=== PATIENT | female | born 1945 | race African-American/Black ===

== ENCOUNTER 2021-01-02 07:44 | Emergency (ER) | payer MEDICARE ==
--- NOTE | 2021-01-02 08:22 | CT ---
DATE OF SERVICE: 01/02/21 CLINICAL DATA: RIGHT SIDED WEAKNESS Unenhanced brain CT: Multi slice acquisition through the brain without IV contrast was performed. No priors. There is a large area of parenchymal hemorrhage within the basal ganglia and thalamus on the left. There is associated mass effect. This most likely represents a hypertensive bleed. There is also blood density material noted within the lateral ventricles and 3rd ventricle consistent with intraventricular hemorrhage. No other acute abnormalities. MTDD
[2021-01-02] MEDS ORDERED: niCARdipine HCl 25 MG in Sodium Chloride 0.9% 240 ML IV SCH (09:00)
[2021-01-02] MEDS: Ondansetron 4 MG/2 ML SDV IVPUSH ONE ×2 (09:36→09:37)
[2021-01-02] MEDS ORDERED: Ondansetron 4 MG/2 ML SDV ONE (09:45)
--- NOTE | 2021-01-02 09:47 | CR ---
DATE OF SERVICE: 01/02/21 CLINICAL DATA: chest congestion - Acute CVA. AP CHEST: No priors. The patient has taken a poor inspiration. The heart is enlarged. The aorta is calcified and ectatic. The pulmonary vasculature appears mildly prominent suggesting pulmonary venous congestion. The lungs are clear. No pneumothorax. No pleural effusions. There is degenerative disc disease throughout the thoracic spine. [id number] [facility]
--- NOTE | 2021-01-02 09:55 | EDM.PDOC ---
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 She cannot move her Rt side. She has obvious drooping of the mouth on the Rt side. Onset: Sudden - Related Data Allergies Allergy/AdvReac Type Severity Reaction Status Date / Time No Known Allergies Allergy Verified 01/02/21 08:00 Home Meds: Home Meds Brimonidine [Alphagan 0.2% Ophth Soln] 5 ml EYEBOTH DAILY 01/02/21 [History] Latanoprost/Pf [Latanoprost 0.005% Eye Drop] 7.5 ml OP BEDTIME 01/02/21 [History] Timolol Maleate/PF [Timolol Maleate 0.5% Eye Drop] 1 drop EYEBOTH DAILY 01/02/21 [History] Past Medical History HEENT History: Reports: Cataract Cardiovascular History: Reports: Hypertension Endocrine/Metabolic History: Reports: Diabetes, Type II Social & Family History - Family History Family Medical History: Unobtainable - Tobacco Use Tobacco Use Status *Q: Unknown Ever Used Tobacco - Recreational Drug Use Recreational Drug Use: No ED ROS GENERAL - Review of Systems Review Of Systems: Comprehensive ROS is negative, except as noted in HPI. Neurological: Reports: Other (She has a hard time talking. She cannot move her Rt arm or leg. ) ED EXAM, NEURO - Physical Exam Exam: See Below Text/Narrative:: NIH score of 7 initially. General Appearance: Anxious Neurological: Other (She cannot move her Rt arm or leg at all. She has facial drooping on the Rt side.) #1 Interpretation EKG Date: 01/02/21 Course - Vital Signs Last Recorded V/S: Last Vital Signs Temp 97.2 F 01/02/21 07:53 Pulse 80 01/02/21 09:20 Resp 26 H 01/02/21 09:20 BP 166/85 H 01/02/21 09:20 Pulse Ox 97 01/02/21 09:20 - Orders/Labs/Meds Orders: Active Orders 24 hr Category Date Time Status EKG Documentation Completion [RC] ASDIRECTED Care 01/02/21 08:31 Active Banuelos Catheter Insertion [Insert Urinary Catheter] [OM. Care 01/02/21 08:45 Ordered PC] Q24H Urinary Catheter Assessment [RC] ASDIRECTED Care 01/02/21 08:32 Active niCARdipine HCl [Nicardipine HCl] 25 mg Med 01/02/21 09:00 Active Sodium Chloride 0.9% [Normal Saline] 240 ml IV ASDIRECTED Medication Orders Nicardipine HCl 25 mg/ Sodium (Chloride) 250 mls @ 50 mls/hr IV ASDIRECTED BRIDGER Last Admin: 01/02/21 08:40 Dose: 50 mls/hr Documented by: BRANDY Labs: Laboratory Tests 01/02/21 01/02/21 01/02/21 Range/Units 07:54 08:15 08:15 WBC 5.1 (4.0-11.0) K/uL RBC 4.73 (3.80-5.80) M/uL Hgb 12.3 (11.5-16.5) g/dL Hct 38.3 (37.0-47.0) % MCV 81 (76-96) fL MCH 26.0 L (27.0-32.0) pg MCHC 32.1 (31.0-35.0) g/dL RDW 14.8 (11.0-16.0) % Plt Count 223 (150-500) K/uL MPV 9.7 (6.0-10.0) fL Neut % (Auto) 56.0 (45.0-70.0) % Lymph % (Auto) 32.7 (20.0-40.0) % [place] % (Auto) 8.6 (3.0-10.0) % Eos % (Auto) 2.5 (1.0-5.0) % Baso % (Auto) 0.2 (0.0-0.5) % Neut # (Auto) 2.85 (2.00-7.50) K/uL Lymph # (Auto) 1.67 (1.50-4.00) K/uL [place] # (Auto) 0.44 (0.20-0.80) K/uL Eos # (Auto) 0.13 (0.04-0.40) K/uL Baso # (Auto) 0.01 L (0.02-0.10) K/uL PT (9.0-11.5) sec INR (1.0-3.5) Sodium 141 (136-145) mmol/L Potassium 4.0 (3.5-5.1) mmol/L Chloride 103 (98-107) mmol/L Carbon Dioxide 28.9 (21.0-32.0) mmol/L Anion Gap 13.1 (5.0-15.0) mmol/L BUN 21 (8-26) mg/dL Creatinine 1.26 H (0.55-1.02) mg/dL Est Cr Clr Drug Dosing 40.11 mL/min Estimated GFR (MDRD) 50 L (>60) MLS/MIN BUN/Creatinine Ratio 16.7 (6-25) Glucose 198 H D (74-100) mg/dL POC Glucose 177 H (74-110) mg/dL Calcium 8.8 (8.5-10.1) mg/dL Total Bilirubin 0.4 (0.0-1.0) mg/dL AST 22 (15-37) U/L ALT 19 (12-78) U/L Alkaline Phosphatase 82 (46-116) U/L Total Protein 8.3 H (6.4-8.2) g/dL Albumin 3.1 L (3.4-5.0) g/dL Globulin 5.2 H (2.2-4.2) g/dL Albumin/Globulin Ratio 0.6 L (0.8-2.0) 01/02/21 Range/Units 08:15 WBC (4.0-11.0) K/uL RBC (3.80-5.80) M/uL Hgb (11.5-16.5) g/dL Hct (37.0-47.0) % MCV (76-96) fL MCH (27.0-32.0) pg MCHC (31.0-35.0) g/dL RDW (11.0-16.0) % Plt Count (150-500) K/uL MPV (6.0-10.0) fL Neut % (Auto) (45.0-70.0) % Lymph % (Auto) (20.0-40.0) % [place] % (Auto) (3.0-10.0) % Eos % (Auto) (1.0-5.0) % Baso % (Auto) (0.0-0.5) % Neut # (Auto) (2.00-7.50) K/uL Lymph # (Auto) (1.50-4.00) K/uL [place] # (Auto) (0.20-0.80) K/uL Eos # (Auto) (0.04-0.40) K/uL Baso # (Auto) (0.02-0.10) K/uL PT 10.3 (9.0-11.5) sec INR 1.0 (1.0-3.5) Sodium (136-145) mmol/L Potassium (3.5-5.1) mmol/L Chloride (98-107) mmol/L Carbon Dioxide (21.0-32.0) mmol/L Anion Gap (5.0-15.0) mmol/L BUN (8-26) mg/dL Creatinine (0.55-1.02) mg/dL Est Cr Clr Drug Dosing mL/min Estimated GFR (MDRD) (>60) MLS/MIN BUN/Creatinine Ratio (6-25) Glucose (74-100) mg/dL POC Glucose (74-110) mg/dL Calcium (8.5-10.1) mg/dL Total Bilirubin (0.0-1.0) mg/dL AST (15-37) U/L ALT (12-78) U/L Alkaline Phosphatase (46-116) U/L Total Protein (6.4-8.2) g/dL Albumin (3.4-5.0) g/dL Globulin (2.2-4.2) g/dL Albumin/Globulin Ratio (0.8-2.0) Meds: Medications Generic Name Dose Route Start Last Admin Trade Name Freq PRN Reason Stop Dose Admin Nicardipine HCl 25 mg/ Sodium 250 mls @ 50 mls/hr 01/02/21 09:00 01/02/21 08:40 Chloride IV 50 mls/hr ASDIRECTED BRIDGER Administration Discontinued Medications Generic Name Dose Route Start Last Admin Trade Name Freq PRN Reason Stop Dose Admin Ondansetron HCl 4 mg 01/02/21 09:35 01/02/21 09:37 Ondansetron 4 Mg/2 Ml Sdv IVPUSH 01/02/21 09:36 4 mg ONETIME ONE Administration Ondansetron HCl Confirm 01/02/21 09:45 01/02/21 09:37 Ondansetron 4 Mg/2 Ml Sdv Administered 01/02/21 09:46 Not Given Dose 4 mg .ROUTE .K-MED ONE - Radiology Interpretation Free Text/Narrative:: Head CT shows a large bleed on the left side. - Re-Assessments/Exams Free Text/Narrative Re-Assessment/Exam: 01/02/21 09:57 Pt did vomit once some white sputum. She seems more relaxed after vomiting. Free Text/Narrative Re-Assessment/Exam: 01/02/21 09:[address] Kwok, Neurologist at [facility]. He accepted the pt, and suggested Nicardipine be used to bring down her BP. WE STARTED IT AT 5 MG/HOUR. NIH score remains at 7. 01/02/21 10:00 Departure - Departure Time of Disposition: 09:50 Disposition: DC/Tfer to Acute Hospital 02 Condition: Fair Clinical Impression: Stroke, hemorrhagic - Discharge Information *PRESCRIPTION DRUG MONITORING PROGRAM REVIEWED*: Not Applicable *COPY OF PRESCRIPTION DRUG MONITORING REPORT IN PATIENT RONALD: Not Applicable Referrals: PCP,None [Primary Care Provider] - Additional Instructions: Pt transferred to [facility] ER by life flight. Most recent BP 166/85. Sepsis Event Note (ED) - Evaluation Sepsis Screening Result: No Definite Risk - Focused Exam Vital Signs: Vital Signs Temp Pulse Resp BP Pulse Ox 01/02/21 09:20 80 26 H 166/85 H 97 01/02/21 09:00 79 16 182/92 H 100 01/02/21 08:21 75 18 196/106 H 93 L 01/02/21 07:53 97.2 F 85 18 205/112 H 90 L - My Orders Last 24 Hours: My Active Orders 01/02/21 08:31 EKG Documentation Completion [RC] ASDIRECTED 01/02/21 08:32 Urinary Catheter Assessment [RC] ASDIRECTED 01/02/21 08:45 Banuelos Catheter Insertion [Insert Urinary Catheter] [OM.PC] Q24H 01/02/21 09:00 niCARdipine HCl [Nicardipine HCl] 25 mg Sodium Chloride 0.9% [Normal Saline] 240 ml IV ASDIRECTED - Assessment/Plan Last 24 Hours: My Active Orders 01/02/21 08:31 EKG Documentation Completion [RC] ASDIRECTED 01/02/21 08:32 Urinary Catheter Assessment [RC] ASDIRECTED 01/02/21 08:45 Banuelos Catheter Insertion [Insert Urinary Catheter] [OM.PC] Q24H 01/02/21 09:00 niCARdipine HCl [Nicardipine HCl] 25 mg Sodium Chloride 0.9% [Normal Saline] 240 ml IV ASDIRECTED
== END 2021-01-02 09:45 ==
LOC: LB.ED 07:44
DX: S06.309A Unspecified focal traumatic brain injury with loss of consciousness of unspecified duration, initial encounter (principal); E11.9 Type 2 diabetes mellitus without complications; I10 Essential (primary) hypertension; W18.39XA Other fall on same level, initial encounter; Y92.000 Kitchen of unspecified non-institutional (private) residence as the place of occurrence of the external cause
CPT/HCPCS: 36415; 51702; 70450; 71045; 80053; 82947; 85025; 85610; 93005; 96365; 96375; 99285-25; A0425; A0429; J2405; J7050

== ENCOUNTER 2021-01-21 10:13 | Inpatient (IN) | payer MEDICARE ==
--- NOTE | 2021-01-21 12:10 | PCM.HP.2 ---
H&P History of Present Illness - General Date of Service: 01/21/21 Admit Problem/Dx: Admission Diagnosis/Problem Admission Diagnosis/Problem Hemiplegia Source of Information: Patient History Limitations: Reports: No Limitations - History of Present Illness Initial Comments - Free Text/Narative: patient was transferred to swing bed from [facility] for continuation of her rehab. 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 CT head showed left intraparenchymal hmrg involving the thalamus and BG resulting in flaccid paralysis on the right side ( upper and lower extremities ), as well as, right visual field cristine- neglect. Patient also known obesity, DM and HTN. On multiple meds to control her BP and insulin as well. Also required bed lift and total assistance for bathing, eating and dressing. She has a Ny catheter and was recently started on Cipro for a UTI ( course ends on 01/24). - Related Data Allergies/Adverse Reactions: Allergies Allergy/AdvReac Type Severity Reaction Status Date / Time penicillin G Allergy Rash Verified 01/21/21 14:01 Home Medications: Home Meds Brimonidine [Alphagan 0.2% Ophth Soln] 1 drop EYEBOTH BID 01/02/21 [History] Latanoprost/Pf [Latanoprost 0.005% Eye Drop] 1 drop EYEBOTH BEDTIME 01/02/21 [History] Timolol Maleate/PF [Timolol Maleate 0.5% Eye Drop] 1 drop EYEBOTH BID 01/02/21 [History] Past Medical History HEENT History: Reports: Cataract Cardiovascular History: Reports: Hypertension Endocrine/Metabolic History: Reports: Diabetes, Type II Social & Family History - Family History Family Medical History: Unobtainable H&P Review of Systems - Review of Systems: Review Of Systems: See Below General: Reports: No Symptoms HEENT: Reports: No Symptoms Pulmonary: Reports: No Symptoms Cardiovascular: Reports: No Symptoms Gastrointestinal: Reports: No Symptoms Skin: Reports: No Symptoms Exam - Exam Exam: See Below - Exam Quality Assessment: No: Supplemental Oxygen General: Alert, Oriented, Cooperative HEENT: PERRLA, Mucosa Moist & [place] Lungs: Clear to Auscultation, Normal Respiratory Effort Cardiovascular: Regular Rate, Regular Rhythm GI/Abdominal Exam: Normal Bowel Sounds, Soft, Non-Tender Extremities: Normal Inspection Neuro Extensive - Mental Status: Alert, Oriented x3, Normal Mood/Affect Neuro Extensive - Motor, Sensory, Reflexes: Other (right sided weakness involving RUE and RLE. Also right side facial palsy - with right sided hemineglect. left side motor 5/5 with intact sensation ) Psychiatric: Alert, Normal Affect, Normal Mood - Problem List (1) UTI (urinary tract infection) SNOMED Code(s): 16644191 ICD Code: N39.0 - URINARY TRACT INFECTION, SITE NOT SPECIFIED Status: Acute Priority: Low Current Visit: Yes Qualifiers: Urinary tract infection type: acute cystitis Hematuria presence: without hematuria Qualified Code(s): N30.00 - Acute cystitis without hematuria (2) Hypertension SNOMED Code(s): 94851398 ICD Code: I10 - ESSENTIAL (PRIMARY) HYPERTENSION Status: Acute Priority: Low Current Visit: Yes Qualifiers: Hypertension type: unspecified Qualified Code(s): I10 - Essential (primary) hypertension (3) Diabetes SNOMED Code(s): 52138700 ICD Code: E11.9 - TYPE 2 DIABETES MELLITUS WITHOUT COMPLICATIONS Status: Acute Priority: Low Current Visit: Yes Qualifiers: Diabetes mellitus type: type 2 Diabetes mellitus fci insulin use: with keno terminal operator use Diabetes mellitus complication status: without complication Qualified Code(s): E11.9 - Type 2 diabetes mellitus without complications; Z79.4 - alf (current) use of insulin (4) Stroke, hemorrhagic SNOMED Code(s): 175963735 ICD Code: I61.9 - NONTRAUMATIC INTRACEREBRAL HEMORRHAGE, UNSPECIFIED Status: Acute Priority: Medium Current Visit: No Problem List Initiated/Reviewed/Updated: Yes Orders Last 24hrs: Active Orders 24 hr Category Date Time Status Admission Status [Patient Status] [ADT] Routine ADT 01/21/21 11:20 Active Bedrest Bedside Commode [RC] ASDIRECTED Care 01/21/21 12:03 Ordered Oxygen Therapy [RC] PRN Care 01/21/21 12:03 Ordered Vital Signs [RC] Q4H Care 01/21/21 12:03 Ordered OT Evaluation and Treatment [CONS] Routine Cons 01/21/21 12:05 Ordered PT Evaluation and Treatment [CONS] Routine Cons 01/21/21 12:05 Ordered Clear Liquid Diet [DIET] Diet 01/21/21 Lunch Ordered Assessment/Plan Comment:: 1- 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 -avoid anticoagulation. daily monitoring of symptoms. PT/OT consultation. 2- Oropharyngeal dysphagia: -speech language consultation. meanwhile, resume thick liquid minced diet. 3- Essential HTN: - Suboptimal controlled. On multiple meds will adjust accordingly. Carvedilol, Nifedipine, HCLZ, and lisinopril. 4- DMT2: - blood sugar monitoring with meals x4. Sliding scale. Levemir 15 units q AM, and Humalog with meals as needed. 5- h/o Glaucoma: - resume eye drops - Alphagan, Xalatan, Timoptic. 6- h/o UTI/ On ny: - was started on Cipro 500mg PO on 01/19 - resume till 01/24. 7- Obesity/weakness: - required bed lift and multiple banking assistant to bathing, feeding and cleaning. - Mortality Measure Prognosis:: Good
[2021-01-21] MEDS ORDERED: Glucagon,Human Recombinant 1 MG Vial IM PRN ×2 (13:50→22:05)
[2021-01-21] MEDS ORDERED: 50% Dextrose in Water 50 ML Syringe IVPUSH PRN ×2 (13:50→22:05)
[2021-01-21] MEDS: Ascorbic Acid 500 MG Tab PO SCH ×2 (15:19→20:47)
[2021-01-21] MEDS: Brimonidine 0.2% Ophth Soln 5 ML Bottle EYEBOTH SCH (20:43)
[2021-01-21] MEDS: Ciprofloxacin 500 MG Tab PO SCH (20:44)
[2021-01-21] MEDS: Carvedilol 6.25 MG Tab PO SCH (20:44)
[2021-01-21] MEDS: NIFEdipine 30 MG Tab.ER PO SCH (20:45)
[2021-01-21] MEDS: Timolol Maleate 0.5% Ophth Soln 5 ML Bottle EYEBOTH SCH (20:46)
[2021-01-21] MEDS: Latanoprost 0.005% Ophth Soln 2.5 ML Bottle EYEBOTH SCH (20:47)
[2021-01-21] MEDS: Insulin Regular, Human 100 Units/ML 3 ML Vial SUBCUT SCH (22:25)
[2021-01-22] MEDS: Insulin Regular, Human 100 Units/ML 3 ML Vial SUBCUT SCH ×3 (08:20→17:45)
[2021-01-22] MEDS: Timolol Maleate 0.5% Ophth Soln 5 ML Bottle EYEBOTH SCH ×2 (08:20→20:28)
[2021-01-22] MEDS: Carvedilol 6.25 MG Tab PO SCH ×2 (08:21→20:27)
[2021-01-22] MEDS: NIFEdipine 30 MG Tab.ER PO SCH ×2 (08:21→20:28)
[2021-01-22] MEDS: Lisinopril 20 MG Tab PO SCH (08:22)
[2021-01-22] MEDS: Ascorbic Acid 500 MG Tab PO SCH ×3 (08:22→20:28)
[2021-01-22] MEDS: Hydrochlorothiazide 12.5 MG Cap PO SCH (08:22)
[2021-01-22] MEDS: Ciprofloxacin 500 MG Tab PO SCH ×2 (08:22→20:27)
[2021-01-22] MEDS: Isosorbide Mononitrate 60 MG Tab.ER PO SCH (08:22)
[2021-01-22] MEDS: Insulin Glargine,Human Rec. Analog 100 Units/ML 3 ML Pen SUBCUT SCH (08:46)
[2021-01-22] MEDS: Brimonidine 0.2% Ophth Soln 5 ML Bottle EYEBOTH SCH (10:09)
[2021-01-22] MEDS: BRIMONIDINE EYEBOTH SCH ×2 (10:10→20:28)
[2021-01-22] MEDS: Latanoprost 0.005% Ophth Soln 2.5 ML Bottle EYEBOTH SCH (20:28)
[2021-01-23] MEDS: Insulin Regular, Human 100 Units/ML 3 ML Vial SUBCUT SCH ×3 (08:11→17:40)
[2021-01-23] MEDS: Ciprofloxacin 500 MG Tab PO SCH ×2 (08:33→20:59)
[2021-01-23] MEDS: Ascorbic Acid 500 MG Tab PO SCH ×3 (08:33→20:59)
[2021-01-23] MEDS: NIFEdipine 30 MG Tab.ER PO SCH ×2 (08:34→20:58)
[2021-01-23] MEDS: BRIMONIDINE EYEBOTH SCH ×2 (08:35→21:00)
[2021-01-23] MEDS: Insulin Glargine,Human Rec. Analog 100 Units/ML 3 ML Pen SUBCUT SCH (08:35)
[2021-01-23] MEDS: Isosorbide Mononitrate 60 MG Tab.ER PO SCH (08:36)
[2021-01-23] MEDS: Hydrochlorothiazide 12.5 MG Cap PO SCH (08:36)
[2021-01-23] MEDS: Lisinopril 20 MG Tab PO SCH (08:37)
[2021-01-23] MEDS: Carvedilol 6.25 MG Tab PO SCH ×2 (08:37→20:59)
[2021-01-23] MEDS: Timolol Maleate 0.5% Ophth Soln 5 ML Bottle EYEBOTH SCH ×2 (08:38→20:59)
[2021-01-23] MEDS: Polyethylene Glycol 3350 Powder 17 GM Packet PO SCH (11:27)
[2021-01-23] MEDS: Latanoprost 0.005% Ophth Soln 2.5 ML Bottle EYEBOTH SCH (21:00)
[2021-01-24] MEDS: Timolol Maleate 0.5% Ophth Soln 5 ML Bottle EYEBOTH SCH ×2 (08:00→20:36)
[2021-01-24] MEDS: BRIMONIDINE EYEBOTH SCH ×2 (10:00→20:35)
[2021-01-24] MEDS: NIFEdipine 30 MG Tab.ER PO SCH ×2 (10:01→20:32)
[2021-01-24] MEDS ORDERED: NIFEdipine 30 MG Tab.ER ONE (10:04)
[2021-01-24] MEDS: FLUoxetine 10 MG Cap PO SCH (10:04)
[2021-01-24] MEDS: Ascorbic Acid 500 MG Tab PO SCH ×3 (10:05→20:31)
[2021-01-24] MEDS: Ciprofloxacin 500 MG Tab PO SCH ×2 (10:06→20:31)
[2021-01-24] MEDS: Hydrochlorothiazide 12.5 MG Cap PO SCH (10:06)
[2021-01-24] MEDS: Carvedilol 6.25 MG Tab PO SCH ×2 (10:07→20:31)
[2021-01-24] MEDS: Isosorbide Mononitrate 60 MG Tab.ER PO SCH (10:07)
[2021-01-24] MEDS: Polyethylene Glycol 3350 Powder 17 GM Packet PO SCH (10:09)
[2021-01-24] MEDS: Lisinopril 20 MG Tab PO SCH (10:09)
[2021-01-24] MEDS: Insulin Regular, Human 100 Units/ML 3 ML Vial SUBCUT SCH ×4 (10:10→20:42)
[2021-01-24] MEDS: Insulin Glargine,Human Rec. Analog 100 Units/ML 3 ML Pen SUBCUT SCH (10:16)
[2021-01-24] MEDS: Latanoprost 0.005% Ophth Soln 2.5 ML Bottle EYEBOTH SCH (20:41)
[2021-01-25] MEDS: FLUoxetine 10 MG Cap PO SCH (08:11)
[2021-01-25] MEDS: Lisinopril 20 MG Tab PO SCH (08:11)
[2021-01-25] MEDS: Isosorbide Mononitrate 60 MG Tab.ER PO SCH (08:12)
[2021-01-25] MEDS: Ciprofloxacin 500 MG Tab PO SCH (08:12)
[2021-01-25] MEDS: Hydrochlorothiazide 12.5 MG Cap PO SCH (08:12)
[2021-01-25] MEDS: NIFEdipine 30 MG Tab.ER PO SCH ×2 (08:12→20:26)
[2021-01-25] MEDS: Ascorbic Acid 500 MG Tab PO SCH ×3 (08:12→20:27)
[2021-01-25] MEDS: Carvedilol 6.25 MG Tab PO SCH ×2 (08:12→20:23)
[2021-01-25] MEDS: Polyethylene Glycol 3350 Powder 17 GM Packet PO SCH (08:13)
[2021-01-25] MEDS: BRIMONIDINE EYEBOTH SCH ×2 (08:13→20:25)
[2021-01-25] MEDS: Timolol Maleate 0.5% Ophth Soln 5 ML Bottle EYEBOTH SCH ×2 (08:14→20:27)
[2021-01-25] MEDS: Insulin Glargine,Human Rec. Analog 100 Units/ML 3 ML Pen SUBCUT SCH (08:15)
[2021-01-25] MEDS: Insulin Regular, Human 100 Units/ML 3 ML Vial SUBCUT SCH ×4 (08:15→20:23)
[2021-01-25] MEDS: Latanoprost 0.005% Ophth Soln 2.5 ML Bottle EYEBOTH SCH (20:28)
[2021-01-26] MEDS: Polyethylene Glycol 3350 Powder 17 GM Packet PO SCH (07:13)
[2021-01-26] MEDS: FLUoxetine 10 MG Cap PO SCH (07:13)
[2021-01-26] MEDS: Ascorbic Acid 500 MG Tab PO SCH ×3 (07:14→23:22)
[2021-01-26] MEDS: Hydrochlorothiazide 12.5 MG Cap PO SCH (07:14)
[2021-01-26] MEDS: Isosorbide Mononitrate 60 MG Tab.ER PO SCH (07:14)
[2021-01-26] MEDS: Timolol Maleate 0.5% Ophth Soln 5 ML Bottle EYEBOTH SCH ×2 (07:16→23:04)
[2021-01-26] MEDS: Lisinopril 20 MG Tab PO SCH (07:36)
[2021-01-26] MEDS: NIFEdipine 30 MG Tab.ER PO SCH ×2 (07:37→21:00)
[2021-01-26] MEDS: Carvedilol 6.25 MG Tab PO SCH ×2 (07:37→21:00)
[2021-01-26] MEDS: BRIMONIDINE EYEBOTH SCH ×2 (07:40→23:05)
[2021-01-26] MEDS: Insulin Glargine,Human Rec. Analog 100 Units/ML 3 ML Pen SUBCUT SCH (07:47)
[2021-01-26] MEDS: Insulin Regular, Human 100 Units/ML 3 ML Vial SUBCUT SCH ×4 (08:16→22:58)
[2021-01-26] MEDS: Latanoprost 0.005% Ophth Soln 2.5 ML Bottle EYEBOTH SCH (23:05)
[2021-01-27] MEDS: Hydrochlorothiazide 12.5 MG Cap PO SCH (07:23)
[2021-01-27] MEDS: Isosorbide Mononitrate 60 MG Tab.ER PO SCH (07:23)
[2021-01-27] MEDS: Polyethylene Glycol 3350 Powder 17 GM Packet PO SCH (07:23)
[2021-01-27] MEDS: Ascorbic Acid 500 MG Tab PO SCH ×3 (07:24→20:53)
[2021-01-27] MEDS: BRIMONIDINE EYEBOTH SCH ×2 (07:24→20:55)
[2021-01-27] MEDS: Timolol Maleate 0.5% Ophth Soln 5 ML Bottle EYEBOTH SCH ×2 (07:26→20:54)
[2021-01-27] MEDS: FLUoxetine 10 MG Cap PO SCH (07:26)
[2021-01-27] MEDS: Lisinopril 20 MG Tab PO SCH (07:29)
[2021-01-27] MEDS: Carvedilol 6.25 MG Tab PO SCH ×2 (07:29→20:52)
[2021-01-27] MEDS: NIFEdipine 30 MG Tab.ER PO SCH ×2 (07:30→20:53)
[2021-01-27] MEDS: Insulin Regular, Human 100 Units/ML 3 ML Vial SUBCUT SCH ×4 (07:45→20:49)
[2021-01-27] MEDS: Insulin Glargine,Human Rec. Analog 100 Units/ML 3 ML Pen SUBCUT SCH (17:49)
[2021-01-27] MEDS: Latanoprost 0.005% Ophth Soln 2.5 ML Bottle EYEBOTH SCH (20:54)
[2021-01-28] MEDS: Isosorbide Mononitrate 60 MG Tab.ER PO SCH (09:11)
[2021-01-28] MEDS: Carvedilol 6.25 MG Tab PO SCH ×2 (09:11→19:58)
[2021-01-28] MEDS: Ascorbic Acid 500 MG Tab PO SCH ×3 (09:12→19:58)
[2021-01-28] MEDS: Hydrochlorothiazide 12.5 MG Cap PO SCH (09:12)
[2021-01-28] MEDS: FLUoxetine 10 MG Cap PO SCH (09:12)
[2021-01-28] MEDS: Lisinopril 20 MG Tab PO SCH (09:12)
[2021-01-28] MEDS: Polyethylene Glycol 3350 Powder 17 GM Packet PO SCH (09:13)
[2021-01-28] MEDS: BRIMONIDINE EYEBOTH SCH ×2 (09:14→19:57)
[2021-01-28] MEDS: Insulin Regular, Human 100 Units/ML 3 ML Vial SUBCUT SCH ×4 (10:22→19:55)
[2021-01-28] MEDS: NIFEdipine 30 MG Tab.ER PO SCH ×2 (10:25→19:59)
[2021-01-28] MEDS: Insulin Glargine,Human Rec. Analog 100 Units/ML 3 ML Pen SUBCUT SCH (10:36)
[2021-01-28] MEDS: Timolol Maleate 0.5% Ophth Soln 5 ML Bottle EYEBOTH SCH ×2 (11:00→20:06)
--- NOTE | 2021-01-28 18:45 | PCM.PN ---
- General Info Date of Service: 01/28/21 Subjective Update: Patient able to acknowledge me present and also the presence of her grandson. She denies any pain or discomfort. She has limited speech but able to speak a one or two words at times. She continues to be unable to move the right side. Functional Status: Reports: Pain Controlled, Tolerating Diet (we will need to closely monitor and feed; f/u with speech therapy closely) - Review of Systems General: Reports: Weakness HEENT: Reports: No Symptoms Pulmonary: Reports: No Symptoms Cardiovascular: Reports: No Symptoms Gastrointestinal: Reports: No Symptoms Genitourinary: Reports: No Symptoms Musculoskeletal: Reports: No Symptoms Neurological: Reports: Pre-Existing Deficit - Patient Data Vitals - Most Recent: Last Vital Signs Temp 37.0 C 01/28/21 17:00 Pulse 79 01/28/21 17:00 Resp 18 01/28/21 17:00 BP 100/66 01/28/21 17:00 Pulse Ox 98 01/28/21 17:00 Weight - Most Recent: 91.58 kg I&O - Last 24 Hours: Intake & Output 01/28/21 01/28/21 01/28/21 06:59 14:59 22:59 Output Total 800 Balance -800 Lab Results Last 24 Hours: Laboratory Results - last 24 hr 01/27/21 01/28/21 01/28/21 Range/Units 20:18 07:55 11:30 POC Glucose 237 H 117 H 230 H (74-110) mg/dL 01/28/21 Range/Units 16:49 POC Glucose 260 H (74-110) mg/dL Med Orders - Current: Current Medications Ascorbic Acid (Ascorbic Acid 500 Mg Tab) 500 mg PO TID [facility] Last Admin: 01/28/21 15:06 Dose: 500 mg Documented by: Brimonidine Tartrate (Brimonidine 0.2% Ophth Soln 5 Ml Bottle) 1 ml EYEBOTH BID [facility] Last Admin: 01/22/21 10:09 Dose: Not Given Documented by: Carvedilol (Carvedilol 6.25 Mg Tab) 6.25 mg PO BID [facility] Last Admin: 01/28/21 09:11 Dose: 6.25 mg Documented by: Dextrose/Water (50% Dextrose In Water 50 Ml Syringe) 50 ml IVPUSH ASDIRECTED PRN PRN Reason: Hypoglycemia Dextrose/Water (50% Dextrose In Water 50 Ml Syringe) 50 ml IVPUSH ASDIRECTED PRN PRN Reason: Hypoglycemia Fluoxetine HCl (Fluoxetine 10 Mg Cap) 10 mg PO DAILY [facility] Last Admin: 01/28/21 09:12 Dose: 10 mg Documented by: Glucagon (Glucagon,Human Recombinant 1 Mg Vial) 1 mg IM ASDIRECTED PRN PRN Reason: Hypoglycemia Glucagon (Glucagon,Human Recombinant 1 Mg Vial) 1 mg IM ASDIRECTED PRN PRN Reason: Hypoglycemia Hydrochlorothiazide (Hydrochlorothiazide 12.5 Mg Cap) 12.5 mg PO DAILY [facility] Last Admin: 01/28/21 09:12 Dose: 12.5 mg Documented by: Insulin Glargine (Insulin Glargine,Human Rec. Analog 100 Units/Ml 3 Ml Pen) 15 units SUBCUT QAM [facility] Last Admin: 01/28/21 10:36 Dose: 15 units Documented by: Insulin Human Regular (Insulin Regular, Human 100 Units/Ml 3 Ml Vial) 0 unit SUBCUT QID [facility]; Protocol Last Admin: 01/28/21 17:38 Dose: 6 unit Documented by: Isosorbide Mononitrate (Isosorbide Mononitrate 60 Mg Tab.Er) 60 mg PO DAILY [facility] Last Admin: 01/28/21 09:11 Dose: 60 mg Documented by: Latanoprost (Latanoprost 0.005% Ophth Soln 2.5 Ml Bottle) 1 ml EYEBOTH BEDTIME [facility] Last Admin: 01/27/21 20:54 Dose: 1 drop Documented by: Lisinopril (Lisinopril 20 Mg Tab) 20 mg PO DAILY [facility] Last Admin: 01/28/21 09:12 Dose: 20 mg Documented by: Nifedipine (Nifedipine 30 Mg Tab.Er) 60 mg PO BID [facility] Last Admin: 01/28/21 10:25 Dose: 60 mg Documented by: Brimonidine (Ophthalmic Drops) 1 each EYEBOTH BID [facility] Last Admin: 01/28/21 09:14 Dose: 1 each Documented by: Polyethylene Glycol (Polyethylene Glycol 3350 Powder 17 Gm Packet) 17 gm PO DAILY [facility] Last Admin: 01/28/21 09:13 Dose: Not Given Documented by: Timolol Maleate (Timolol Maleate 0.5% Ophth Soln 5 Ml Bottle) 1 ml EYEBOTH BID [facility] Last Admin: 01/28/21 11:00 Dose: 1 drop Documented by: Discontinued Medications Ciprofloxacin (Ciprofloxacin 500 Mg Tab) 500 mg PO BID [facility] Stop: 01/25/21 08:01 Last Admin: 01/25/21 08:12 Dose: 500 mg Documented by: Insulin Human Regular (Insulin Regular, Human 100 Units/Ml 3 Ml Vial) 0 unit SUBCUT TIDAC [facility]; Protocol Last Admin: 01/24/21 17:25 Dose: 4 units Documented by: Nifedipine (Nifedipine 30 Mg Tab.Er) Confirm Administered Dose 30 mg .ROUTE .STK-MED ONE Stop: 01/24/21 10:05 Last Admin: 01/24/21 13:59 Dose: Not Given Documented by: - Exam Urinary Catheter Total Time: 10 General: Alert, Cooperative HEENT: Pupils Equal Neck: Supple Lungs: Clear to Auscultation, Normal Respiratory Effort Cardiovascular: Regular Rate, Regular Rhythm GI/Abdominal Exam: Normal Bowel Sounds Back Exam: Normal Inspection Extremities: Normal Inspection Neurological: No New Focal Deficit Psy/Mental Status: Alert, Normal Affect, Normal Mood - Patient Data Lab Results Last 24 hrs: Laboratory Results - last 24 hr 01/27/21 01/28/21 01/28/21 Range/Units 20:18 07:55 11:30 POC Glucose 237 H 117 H 230 H (74-110) mg/dL 01/28/21 Range/Units 16:49 POC Glucose 260 H (74-110) mg/dL Result Diagrams: 01/26/21 13:23 01/26/21 13:23 Sepsis Event Note - Evaluation Sepsis Screening Result: No Definite Risk - Focused Exam Vital Signs: Vital Signs Temp Temp Pulse Pulse Resp BP BP 01/28/21 17:00 37.0 C 79 18 100/66 01/28/21 10:25 132/72 01/28/21 09:12 132/72 01/28/21 09:11 79 132/72 01/28/21 09:00 36.6 C 79 18 132/72 Pulse Ox 01/28/21 17:00 98 01/28/21 10:25 01/28/21 09:12 01/28/21 09:11 01/28/21 09:00 98 - Problem List & Annotations (1) Stroke, hemorrhagic SNOMED Code(s): 712163552 Code(s): I61.9 - NONTRAUMATIC INTRACEREBRAL HEMORRHAGE, UNSPECIFIED Status: Acute Priority: High Current Visit: Yes - Problem List Review Problem List Initiated/Reviewed/Updated: Yes - Plan Plan:: 1- 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 -avoid anticoagulation. daily monitoring of symptoms. PT/OT consultation. 2- Oropharyngeal dysphagia: -speech language consultation. meanwhile, resume thick liquid minced diet. 3- Essential HTN: - Suboptimal controlled. On multiple meds will adjust accordingly. Carvedilol, Nifedipine, HCLZ, and lisinopril. 4- DMT2: - blood sugar monitoring with meals x4. Sliding scale. Levemir 15 units q AM, and Humalog with meals as needed. 5- h/o Glaucoma: - resume eye drops - Alphagan, Xalatan, Timoptic. 6- h/o UTI/ On ny: - was started on Cipro 500mg PO on 01/19 - resume till 01/24. 7- Obesity/weakness: - required bed lift and multiple assistant credit manager to bathing, feeding and cleaning. 01/28/21 Acute CVA - requires PT/OT and Speech Therapy management. Oral dysphagia and speech deficit - Requires Speech therapy HTN - continue control on current BP meds and continue to adjust accordingly DM - Continue glucose monitoring and management Glaucoma - continue current drops and management UTI - Resolved Obesity/Weakness - Lift required, assist for feeding, bathing and hygiene.
[2021-01-28] MEDS: Latanoprost 0.005% Ophth Soln 2.5 ML Bottle EYEBOTH SCH (20:02)
[2021-01-29] MEDS: Hydrochlorothiazide 12.5 MG Cap PO SCH (08:03)
[2021-01-29] MEDS: NIFEdipine 30 MG Tab.ER PO SCH ×2 (08:04→19:43)
[2021-01-29] MEDS: Carvedilol 6.25 MG Tab PO SCH ×2 (08:07→19:43)
[2021-01-29] MEDS: FLUoxetine 10 MG Cap PO SCH (08:08)
[2021-01-29] MEDS: Ascorbic Acid 500 MG Tab PO SCH ×3 (08:08→19:44)
[2021-01-29] MEDS: Lisinopril 20 MG Tab PO SCH (08:08)
[2021-01-29] MEDS: Isosorbide Mononitrate 60 MG Tab.ER PO SCH (08:09)
[2021-01-29] MEDS: Insulin Glargine,Human Rec. Analog 100 Units/ML 3 ML Pen SUBCUT SCH (08:09)
[2021-01-29] MEDS: Insulin Regular, Human 100 Units/ML 3 ML Vial SUBCUT SCH ×4 (08:09→19:48)
[2021-01-29] MEDS: Timolol Maleate 0.5% Ophth Soln 5 ML Bottle EYEBOTH SCH ×2 (08:10→19:42)
[2021-01-29] MEDS: BRIMONIDINE EYEBOTH SCH ×2 (08:10→19:40)
[2021-01-29] MEDS: Polyethylene Glycol 3350 Powder 17 GM Packet PO SCH (08:10)
[2021-01-29] MEDS: Latanoprost 0.005% Ophth Soln 2.5 ML Bottle EYEBOTH SCH (19:44)
[2021-01-30] MEDS: Polyethylene Glycol 3350 Powder 17 GM Packet PO SCH (07:33)
[2021-01-30] MEDS: NIFEdipine 30 MG Tab.ER PO SCH ×2 (07:33→19:58)
[2021-01-30] MEDS: Carvedilol 6.25 MG Tab PO SCH ×2 (07:33→19:58)
[2021-01-30] MEDS: Isosorbide Mononitrate 60 MG Tab.ER PO SCH (07:33)
[2021-01-30] MEDS: Lisinopril 20 MG Tab PO SCH (07:34)
[2021-01-30] MEDS: FLUoxetine 10 MG Cap PO SCH (07:34)
[2021-01-30] MEDS: Insulin Regular, Human 100 Units/ML 3 ML Vial SUBCUT SCH ×4 (07:34→19:59)
[2021-01-30] MEDS: Ascorbic Acid 500 MG Tab PO SCH ×3 (07:34→19:59)
[2021-01-30] MEDS: Hydrochlorothiazide 12.5 MG Cap PO SCH (07:34)
[2021-01-30] MEDS: Timolol Maleate 0.5% Ophth Soln 5 ML Bottle EYEBOTH SCH ×2 (07:35→20:04)
[2021-01-30] MEDS: Insulin Glargine,Human Rec. Analog 100 Units/ML 3 ML Pen SUBCUT SCH (07:36)
[2021-01-30] MEDS: BRIMONIDINE EYEBOTH SCH ×2 (07:37→21:07)
[2021-01-30] MEDS: Latanoprost 0.005% Ophth Soln 2.5 ML Bottle EYEBOTH SCH (21:07)
[2021-01-31] MEDS: Polyethylene Glycol 3350 Powder 17 GM Packet PO SCH (09:58)
[2021-01-31] MEDS: Ascorbic Acid 500 MG Tab PO SCH ×4 (09:59→20:36)
[2021-01-31] MEDS: Lisinopril 20 MG Tab PO SCH (09:59)
[2021-01-31] MEDS: BRIMONIDINE EYEBOTH SCH ×2 (09:59→20:25)
[2021-01-31] MEDS: Carvedilol 6.25 MG Tab PO SCH ×2 (10:02→20:39)
[2021-01-31] MEDS: Isosorbide Mononitrate 60 MG Tab.ER PO SCH (10:02)
[2021-01-31] MEDS: FLUoxetine 10 MG Cap PO SCH (10:02)
[2021-01-31] MEDS: Hydrochlorothiazide 12.5 MG Cap PO SCH (10:02)
[2021-01-31] MEDS: Timolol Maleate 0.5% Ophth Soln 5 ML Bottle EYEBOTH SCH ×2 (10:03→20:48)
[2021-01-31] MEDS: NIFEdipine 30 MG Tab.ER PO SCH ×2 (10:03→20:37)
[2021-01-31] MEDS: Insulin Regular, Human 100 Units/ML 3 ML Vial SUBCUT SCH ×4 (10:04→20:46)
[2021-01-31] MEDS: Insulin Glargine,Human Rec. Analog 100 Units/ML 3 ML Pen SUBCUT SCH (10:12)
[2021-01-31] MEDS: Latanoprost 0.005% Ophth Soln 2.5 ML Bottle EYEBOTH SCH (20:40)
[2021-02-01] MEDS: NIFEdipine 30 MG Tab.ER PO SCH ×2 (08:09→19:58)
[2021-02-01] MEDS: Lisinopril 20 MG Tab PO SCH (08:10)
[2021-02-01] MEDS: Polyethylene Glycol 3350 Powder 17 GM Packet PO SCH (08:10)
[2021-02-01] MEDS: Hydrochlorothiazide 12.5 MG Cap PO SCH (08:10)
[2021-02-01] MEDS: FLUoxetine 10 MG Cap PO SCH (08:10)
[2021-02-01] MEDS: Isosorbide Mononitrate 60 MG Tab.ER PO SCH (08:10)
[2021-02-01] MEDS: Ascorbic Acid 500 MG Tab PO SCH ×3 (08:11→19:58)
[2021-02-01] MEDS: Carvedilol 6.25 MG Tab PO SCH ×2 (08:11→19:58)
[2021-02-01] MEDS: Insulin Regular, Human 100 Units/ML 3 ML Vial SUBCUT SCH ×4 (08:11→20:21)
[2021-02-01] MEDS: Timolol Maleate 0.5% Ophth Soln 5 ML Bottle EYEBOTH SCH ×2 (08:16→19:59)
[2021-02-01] MEDS: BRIMONIDINE EYEBOTH SCH ×2 (08:16→19:53)
[2021-02-01] MEDS: Insulin Glargine,Human Rec. Analog 100 Units/ML 3 ML Pen SUBCUT SCH (09:39)
[2021-02-01] MEDS: Latanoprost 0.005% Ophth Soln 2.5 ML Bottle EYEBOTH SCH (20:06)
[2021-02-02] MEDS: Insulin Regular, Human 100 Units/ML 3 ML Vial SUBCUT SCH ×4 (09:30→20:20)
[2021-02-02] MEDS: Insulin Glargine,Human Rec. Analog 100 Units/ML 3 ML Pen SUBCUT SCH (09:31)
[2021-02-02] MEDS: NIFEdipine 30 MG Tab.ER PO SCH ×2 (09:32→20:16)
[2021-02-02] MEDS: Polyethylene Glycol 3350 Powder 17 GM Packet PO SCH (09:32)
[2021-02-02] MEDS: Carvedilol 6.25 MG Tab PO SCH ×2 (09:33→20:13)
[2021-02-02] MEDS: Ascorbic Acid 500 MG Tab PO SCH ×3 (09:35→20:13)
[2021-02-02] MEDS: FLUoxetine 10 MG Cap PO SCH (09:35)
[2021-02-02] MEDS: Isosorbide Mononitrate 60 MG Tab.ER PO SCH (09:35)
[2021-02-02] MEDS: Lisinopril 20 MG Tab PO SCH (09:35)
[2021-02-02] MEDS: Hydrochlorothiazide 12.5 MG Cap PO SCH (09:36)
[2021-02-02] MEDS: BRIMONIDINE EYEBOTH SCH ×2 (09:36→20:18)
[2021-02-02] MEDS: Timolol Maleate 0.5% Ophth Soln 5 ML Bottle EYEBOTH SCH ×2 (09:37→20:24)
[2021-02-02] MEDS: Latanoprost 0.005% Ophth Soln 2.5 ML Bottle EYEBOTH SCH (20:13)
[2021-02-03] MEDS: Carvedilol 6.25 MG Tab PO SCH ×2 (09:30→20:47)
[2021-02-03] MEDS: Insulin Regular, Human 100 Units/ML 3 ML Vial SUBCUT SCH ×4 (09:31→20:48)
[2021-02-03] MEDS: Hydrochlorothiazide 12.5 MG Cap PO SCH (09:32)
[2021-02-03] MEDS: Isosorbide Mononitrate 60 MG Tab.ER PO SCH (09:32)
[2021-02-03] MEDS: NIFEdipine 30 MG Tab.ER PO SCH ×2 (09:33→20:47)
[2021-02-03] MEDS: BRIMONIDINE EYEBOTH SCH ×2 (09:33→20:29)
[2021-02-03] MEDS: Polyethylene Glycol 3350 Powder 17 GM Packet PO SCH (09:33)
[2021-02-03] MEDS: Lisinopril 20 MG Tab PO SCH (09:33)
[2021-02-03] MEDS: Ascorbic Acid 500 MG Tab PO SCH ×3 (09:34→20:47)
[2021-02-03] MEDS: Timolol Maleate 0.5% Ophth Soln 5 ML Bottle EYEBOTH SCH ×2 (09:34→20:43)
[2021-02-03] MEDS: FLUoxetine 10 MG Cap PO SCH (09:35)
[2021-02-03] MEDS: Insulin Glargine,Human Rec. Analog 100 Units/ML 3 ML Pen SUBCUT SCH (09:38)
[2021-02-03] MEDS: Latanoprost 0.005% Ophth Soln 2.5 ML Bottle EYEBOTH SCH (20:50)
[2021-02-04] MEDS ORDERED: NIFEdipine 30 MG Tab.ER ONE (07:20)
[2021-02-04] MEDS: Hydrochlorothiazide 12.5 MG Cap PO SCH (07:25)
[2021-02-04] MEDS: Lisinopril 20 MG Tab PO SCH (07:26)
[2021-02-04] MEDS: NIFEdipine 30 MG Tab.ER PO SCH ×2 (07:28→19:35)
[2021-02-04] MEDS: FLUoxetine 10 MG Cap PO SCH (07:29)
[2021-02-04] MEDS: Carvedilol 6.25 MG Tab PO SCH ×2 (07:29→19:34)
[2021-02-04] MEDS: Isosorbide Mononitrate 60 MG Tab.ER PO SCH (07:29)
[2021-02-04] MEDS: BRIMONIDINE EYEBOTH SCH ×2 (07:30→21:40)
[2021-02-04] MEDS: Ascorbic Acid 500 MG Tab PO SCH ×3 (07:30→19:35)
[2021-02-04] MEDS: Timolol Maleate 0.5% Ophth Soln 5 ML Bottle EYEBOTH SCH ×2 (07:30→21:40)
[2021-02-04] MEDS: Insulin Glargine,Human Rec. Analog 100 Units/ML 3 ML Pen SUBCUT SCH (07:31)
[2021-02-04] MEDS: Polyethylene Glycol 3350 Powder 17 GM Packet PO SCH (07:32)
[2021-02-04] MEDS: Insulin Regular, Human 100 Units/ML 3 ML Vial SUBCUT SCH ×4 (07:33→20:37)
[2021-02-04] MEDS: Latanoprost 0.005% Ophth Soln 2.5 ML Bottle EYEBOTH SCH (21:40)
[2021-02-05] MEDS: NIFEdipine 30 MG Tab.ER PO SCH ×2 (10:31→19:42)
[2021-02-05] MEDS: Lisinopril 20 MG Tab PO SCH (10:32)
[2021-02-05] MEDS: Hydrochlorothiazide 12.5 MG Cap PO SCH (10:32)
[2021-02-05] MEDS: Carvedilol 6.25 MG Tab PO SCH ×2 (10:33→19:42)
[2021-02-05] MEDS: Ascorbic Acid 500 MG Tab PO SCH ×3 (10:34→19:42)
[2021-02-05] MEDS: Isosorbide Mononitrate 60 MG Tab.ER PO SCH (10:34)
[2021-02-05] MEDS: FLUoxetine 10 MG Cap PO SCH (10:34)
[2021-02-05] MEDS: BRIMONIDINE EYEBOTH SCH ×2 (10:35→19:43)
[2021-02-05] MEDS: Polyethylene Glycol 3350 Powder 17 GM Packet PO SCH (10:35)
[2021-02-05] MEDS: Insulin Glargine,Human Rec. Analog 100 Units/ML 3 ML Pen SUBCUT SCH (10:35)
[2021-02-05] MEDS: Timolol Maleate 0.5% Ophth Soln 5 ML Bottle EYEBOTH SCH ×2 (10:36→19:41)
[2021-02-05] MEDS: Insulin Regular, Human 100 Units/ML 3 ML Vial SUBCUT SCH ×4 (13:00→20:47)
[2021-02-05] MEDS ORDERED: Ascorbic Acid 500 MG Tab ONE (14:48)
[2021-02-05] MEDS: Latanoprost 0.005% Ophth Soln 2.5 ML Bottle EYEBOTH SCH (19:40)
[2021-02-06] MEDS: Insulin Regular, Human 100 Units/ML 3 ML Vial SUBCUT SCH ×4 (08:33→20:45)
[2021-02-06] MEDS: Isosorbide Mononitrate 60 MG Tab.ER PO SCH (08:38)
[2021-02-06] MEDS: Ascorbic Acid 500 MG Tab PO SCH ×3 (08:38→20:39)
[2021-02-06] MEDS: Carvedilol 6.25 MG Tab PO SCH ×2 (08:38→20:39)
[2021-02-06] MEDS: Lisinopril 20 MG Tab PO SCH (08:38)
[2021-02-06] MEDS: NIFEdipine 30 MG Tab.ER PO SCH ×2 (08:38→20:39)
[2021-02-06] MEDS: Hydrochlorothiazide 12.5 MG Cap PO SCH (08:39)
[2021-02-06] MEDS: Insulin Glargine,Human Rec. Analog 100 Units/ML 3 ML Pen SUBCUT SCH ×2 (08:39→11:59)
[2021-02-06] MEDS: Polyethylene Glycol 3350 Powder 17 GM Packet PO SCH (08:40)
[2021-02-06] MEDS: BRIMONIDINE EYEBOTH SCH ×2 (08:41→20:40)
[2021-02-06] MEDS: Timolol Maleate 0.5% Ophth Soln 5 ML Bottle EYEBOTH SCH ×2 (08:42→20:40)
[2021-02-06] MEDS: FLUoxetine 10 MG Cap PO SCH (08:43)
[2021-02-06] MEDS: Melatonin 3 MG Tab PO PRN (20:39)
[2021-02-06] MEDS: Latanoprost 0.005% Ophth Soln 2.5 ML Bottle EYEBOTH SCH (20:40)
[2021-02-07] MEDS: NIFEdipine 30 MG Tab.ER PO SCH ×2 (09:29→20:59)
[2021-02-07] MEDS: Lisinopril 20 MG Tab PO SCH (09:29)
[2021-02-07] MEDS: Isosorbide Mononitrate 60 MG Tab.ER PO SCH (09:30)
[2021-02-07] MEDS: Carvedilol 6.25 MG Tab PO SCH ×2 (09:30→20:59)
[2021-02-07] MEDS: Hydrochlorothiazide 12.5 MG Cap PO SCH (09:31)
[2021-02-07] MEDS: Polyethylene Glycol 3350 Powder 17 GM Packet PO SCH (09:31)
[2021-02-07] MEDS: Ascorbic Acid 500 MG Tab PO SCH ×3 (09:31→20:55)
[2021-02-07] MEDS: Insulin Regular, Human 100 Units/ML 3 ML Vial SUBCUT SCH ×4 (09:31→20:55)
[2021-02-07] MEDS: BRIMONIDINE EYEBOTH SCH ×2 (09:32→20:56)
[2021-02-07] MEDS: Insulin Glargine,Human Rec. Analog 100 Units/ML 3 ML Pen SUBCUT SCH (09:32)
[2021-02-07] MEDS: Timolol Maleate 0.5% Ophth Soln 5 ML Bottle EYEBOTH SCH ×2 (11:24→20:57)
[2021-02-07] MEDS: Melatonin 3 MG Tab PO PRN (20:54)
[2021-02-07] MEDS: Latanoprost 0.005% Ophth Soln 2.5 ML Bottle EYEBOTH SCH (20:58)
[2021-02-08] MEDS: Carvedilol 6.25 MG Tab PO SCH (07:55)
[2021-02-08] MEDS: Lisinopril 20 MG Tab PO SCH (07:55)
[2021-02-08] MEDS: Hydrochlorothiazide 12.5 MG Cap PO SCH (07:55)
[2021-02-08] MEDS: NIFEdipine 30 MG Tab.ER PO SCH (07:55)
[2021-02-08] MEDS: Insulin Regular, Human 100 Units/ML 3 ML Vial SUBCUT SCH (07:56)
[2021-02-08] MEDS: Isosorbide Mononitrate 60 MG Tab.ER PO SCH (07:56)
[2021-02-08] MEDS: Ascorbic Acid 500 MG Tab PO SCH (07:56)
[2021-02-08] MEDS: Polyethylene Glycol 3350 Powder 17 GM Packet PO SCH (07:56)
[2021-02-08] MEDS: Timolol Maleate 0.5% Ophth Soln 5 ML Bottle EYEBOTH SCH (07:58)
[2021-02-08] MEDS: Insulin Glargine,Human Rec. Analog 100 Units/ML 3 ML Pen SUBCUT SCH (07:58)
[2021-02-08] MEDS: BRIMONIDINE EYEBOTH SCH (07:58)
--- NOTE | 2021-02-18 11:32 | PCM.DCSUM1 ---
Discharge Summary - Hospital Course Diagnosis: Stroke: Yes Modified Natasha Scale: Mod.Sev.Disability ;Unable to Walk/Attend Bodily Needs W/O Assistance Modified Sierra Scale Score: 4 - Discharge Data Discharge Date: 02/08/21 Discharge Disposition: Home, Self-Care 01 Condition: Good - Referral to Home Health Primary Care Physician: PCP None - Discharge Diagnosis/Problem(s) (1) Stroke, hemorrhagic SNOMED Code(s): 885851308 ICD Code: I61.9 - NONTRAUMATIC INTRACEREBRAL HEMORRHAGE, UNSPECIFIED Status: Acute Priority: High - Patient Summary/Data Consults: Consultations 01/21/21 12:05 OT Evaluation and Treatment [CONS] Routine Please Evaluate and Treat. OT Reason for Consult: ADL's This query below is only for informational purposes and is not editable. Admission Diagnosis/Problem: Hemiplegia PT Evaluation and Treatment [CONS] Routine Please Evaluate and Treat. PT Reason for Consult: Strengthening This query below is only for informational purposes and is not editable. Admission Diagnosis/Problem: Hemiplegia 01/21/21 14:18 Consult to Speech Language Pathology [FLUX MIXER Evaluation and Treatment] [CONS] Routine Please Evaluate and Treat FLUX MIXER Reason for Consult: Swallow This query below is only for informational purposes and is not editable. Admission Diagnosis/Problem: Hemiplegia - Patient Instructions Diet, Other: Per FLUX MIXER Activity: Non Weight Bearing Driving: Do Not Drive - Discharge Plan Prescriptions/Med Rec: Brimonidine [Alphagan P 0.15% Oph Soln] 1 drop OP BID #15 ml carvediloL [Carvedilol] 6.25 mg PO BID #60 tablet glucagon HCL [Glucagon Emergency Kit] 1 mg IJ ASDIRECTED #1 ml hydroCHLOROthiazide [Hydrochlorothiazide] 12.5 mg PO DAILY #30 cap Isosorbide Mononitrate [Imdur] 60 mg PO DAILY #30 tab.er Insulin Glarg,Human.Rec.Analog [Lantus Solostar] 15 unit SUBCUT DAILY 30 Days pen lisinopriL [Lisinopril] 20 mg PO DAILY #30 tablet Melatonin 6 mg PO DAILY 30 Days #60 capsule polyethylene glycoL 3350 [MiraLAX] 17 gm PO DAILY #30 packet NIFEdipine [Nifedipine ER] 30 mg PO DAILY #90 tab.er.24 Timolol Maleate/PF [Timolol Maleate 0.5% Eye Drop] 1 each OP BID #60 droperette Ascorbic Acid [Vitamin C] 500 mg PO TID #500 ml Latanoprost [Xalatan] 1 ml .XX DAILY #30 ml Home Medications: Home Meds Brimonidine [Alphagan 0.2% Ophth Soln] 1 drop EYEBOTH BID 01/02/21 [History] Latanoprost/Pf [Latanoprost 0.005% Eye Drop] 1 drop EYEBOTH BEDTIME 01/02/21 [History] Timolol Maleate/PF [Timolol Maleate 0.5% Eye Drop] 1 drop EYEBOTH BID 01/02/21 [History] Ascorbic Acid [Vitamin C] 500 mg PO TID #500 ml 02/07/21 [Rx] Brimonidine [Alphagan P 0.15% Ophth Soln] 1 drop OP BID #15 ml 02/07/21 [Rx] Insulin Glarg,Human.Rec.Analog [Lantus Solostar] 15 unit SUBCUT DAILY 30 Days pen 02/07/21 [Rx] Isosorbide Mononitrate [Imdur] 60 mg PO DAILY #30 tab.er 02/07/21 [Rx] Latanoprost [Xalatan] 1 ml .XX DAILY #30 ml 02/07/21 [Rx] Melatonin 6 mg PO DAILY 30 Days #60 capsule 02/07/21 [Rx] Timolol Maleate/PF [Timolol Maleate 0.5% Eye Drop] 1 each OP BID #60 droperette 02/07/21 [Rx] carvediloL [Carvedilol] 6.25 mg PO BID #60 tablet 02/07/21 [Rx] glucagon HCL [Glucagon Emergency Kit] 1 mg IJ ASDIRECTED #1 ml 02/07/21 [Rx] hydroCHLOROthiazide [Hydrochlorothiazide] 12.5 mg PO DAILY #30 cap 02/07/21 [Rx] lisinopriL [Lisinopril] 20 mg PO DAILY #30 tablet 02/07/21 [Rx] polyethylene glycoL 3350 [MiraLAX] 17 gm PO DAILY #30 packet 02/07/21 [Rx] Ascorbic Acid [Vitamin C] 500 mg PO TID tablet 02/08/21 [Rx] Brimonidine [Alphagan 0.2% Ophth Soln] 1 ml EYEBOTH BID bottle 02/08/21 [Rx] Insulin Glarg,Human.Rec.Analog [Lantus Solostar] 15 units SUBCUT QAM pen 02/08/21 [Rx] Insulin Regular, Human [HumuLIN R] 0 unit SUBCUT QID vial 02/08/21 [Rx] Isosorbide Mononitrate [Imdur] 60 mg PO DAILY tab.er 02/08/21 [Rx] Latanoprost [Xalatan 0.005% Ophth Soln] 1 ml EYEBOTH BEDTIME bottle 02/08/21 [Rx] Melatonin 6 mg PO BEDTIME PRN tablet 02/08/21 [Rx] NIFEdipine [Nifedipine ER] 30 mg PO DAILY #90 tab.er.24 02/08/21 [Rx] Non-Formulary Medication [NF Drug] 1 each EYEBOTH BID each 02/08/21 [Rx] carvediloL [Coreg] 6.25 mg PO BID tablet 02/08/21 [Rx] hydroCHLOROthiazide [Hydrochlorothiazide] 12.5 mg PO DAILY cap 02/08/21 [Rx] lisinopriL [Prinivil] 20 mg PO DAILY tablet 02/08/21 [Rx] polyethylene glycoL 3350 [MiraLAX] 17 gm PO DAILY packet 02/08/21 [Rx] timoloL maleate [Timoptic 0.5% Ophth Soln] 1 ml EYEBOTH BID bottle 02/08/21 [Rx] Patient Handouts: Form - Daily Diabetes Record, Correction Insulin, Insulin Injection Instructions, Single Insulin Dose, Adult, Blood Glucose Monitoring, Adult, Diabetes Mellitus and Nutrition, Adult - Discharge Summary/Plan Comment DC Time >30 min.: Yes Total # of Minutes for Discharge Time: 35 - General Info Date of Service: 02/08/21 Functional Status: Reports: Pain Controlled, Tolerating Diet - Review of Systems General: Reports: No Symptoms HEENT: Reports: No Symptoms Pulmonary: Reports: No Symptoms Cardiovascular: Reports: No Symptoms Gastrointestinal: Reports: No Symptoms Genitourinary: Reports: Incontinence Musculoskeletal: Reports: No Symptoms Skin: Reports: No Symptoms Neurological: Reports: Trouble Speaking, Difficulty Walking, Change in Speech, Other (hemiplegia) - Patient Data Vitals - Most Recent: Last Vital Signs Temp 36.9 C 02/08/21 09:44 Pulse 79 02/08/21 07:55 Resp 94 H 02/08/21 07:36 BP 133/69 02/08/21 07:55 Pulse Ox 96 02/07/21 20:00 Weight - Most Recent: 89.947 kg Med Orders - Current: Current Medications Discontinued Medications Ascorbic Acid (Ascorbic Acid 500 Mg Tab) 500 mg PO TID [facility] Last Admin: 02/08/21 07:56 Dose: 500 mg Documented by: Ascorbic Acid (Ascorbic Acid 500 Mg Tab) Confirm Administered Dose 500 mg .ROUTE .STK-MED ONE Stop: 02/05/21 14:49 Last Admin: 02/06/21 08:32 Dose: Not Given Documented by: Brimonidine Tartrate (Brimonidine 0.2% Ophth Soln 5 Ml Bottle) 1 ml EYEBOTH BID [facility] Last Admin: 01/22/21 10:09 Dose: Not Given Documented by: Carvedilol (Carvedilol 6.25 Mg Tab) 6.25 mg PO BID [facility] Last Admin: 02/08/21 07:55 Dose: 6.25 mg Documented by: Ciprofloxacin (Ciprofloxacin 500 Mg Tab) 500 mg PO BID [facility] Stop: 01/25/21 08:01 Last Admin: 01/25/21 08:12 Dose: 500 mg Documented by: Dextrose/Water (50% Dextrose In Water 50 Ml Syringe) 50 ml IVPUSH ASDIRECTED PRN PRN Reason: Hypoglycemia Dextrose/Water (50% Dextrose In Water 50 Ml Syringe) 50 ml IVPUSH ASDIRECTED PRN PRN Reason: Hypoglycemia Fluoxetine HCl (Fluoxetine 10 Mg Cap) 10 mg PO DAILY [facility] Last Admin: 02/06/21 08:43 Dose: Not Given Documented by: Glucagon (Glucagon,Human Recombinant 1 Mg Vial) 1 mg IM ASDIRECTED PRN PRN Reason: Hypoglycemia Glucagon (Glucagon,Human Recombinant 1 Mg Vial) 1 mg IM ASDIRECTED PRN PRN Reason: Hypoglycemia Hydrochlorothiazide (Hydrochlorothiazide 12.5 Mg Cap) 12.5 mg PO DAILY [facility] Last Admin: 02/08/21 07:55 Dose: 12.5 mg Documented by: Insulin Glargine (Insulin Glargine,Human Rec. Analog 100 Units/Ml 3 Ml Pen) 15 units SUBCUT QAM [facility] Last Admin: 02/08/21 07:58 Dose: 15 units Documented by: Insulin Human Regular (Insulin Regular, Human 100 Units/Ml 3 Ml Vial) 0 unit SUBCUT TIDAC [facility]; Protocol Last Admin: 01/24/21 17:25 Dose: 4 units Documented by: Insulin Human Regular (Insulin Regular, Human 100 Units/Ml 3 Ml Vial) 0 unit SUBCUT QID [facility]; Protocol Last Admin: 02/08/21 07:56 Dose: Not Given Documented by: Isosorbide Mononitrate (Isosorbide Mononitrate 60 Mg Tab.Er) 60 mg PO DAILY [facility] Last Admin: 02/08/21 07:56 Dose: 60 mg Documented by: Latanoprost (Latanoprost 0.005% Ophth Soln 2.5 Ml Bottle) 1 ml EYEBOTH BEDTIME [facility] Last Admin: 02/07/21 20:58 Dose: 1 drop Documented by: Lisinopril (Lisinopril 20 Mg Tab) 20 mg PO DAILY [facility] Last Admin: 02/08/21 07:55 Dose: 20 mg Documented by: Melatonin (Melatonin 3 Mg Tab) 6 mg PO BEDTIME PRN PRN Reason: Sleep Last Admin: 02/07/21 20:54 Dose: 6 mg Documented by: Nifedipine (Nifedipine 30 Mg Tab.Er) 60 mg PO BID [facility] Last Admin: 02/08/21 07:55 Dose: 60 mg Documented by: Nifedipine (Nifedipine 30 Mg Tab.Er) Confirm Administered Dose 30 mg .ROUTE .STK-MED ONE Stop: 01/24/21 10:05 Last Admin: 01/24/21 13:59 Dose: Not Given Documented by: Nifedipine (Nifedipine 30 Mg Tab.Er) Confirm Administered Dose 30 mg .ROUTE .STK-MED ONE Stop: 02/04/21 07:21 Last Admin: 02/04/21 11:35 Dose: Not Given Documented by: Brimonidine (Ophthalmic Drops) 1 each EYEBOTH BID [facility] Last Admin: 02/08/21 07:58 Dose: 1 each Documented by: Polyethylene Glycol (Polyethylene Glycol 3350 Powder 17 Gm Packet) 17 gm PO DAILY [facility] Last Admin: 02/08/21 07:56 Dose: 17 gm Documented by: Timolol Maleate (Timolol Maleate 0.5% Ophth Soln 5 Ml Bottle) 1 ml EYEBOTH BID [facility] Last Admin: 02/08/21 07:58 Dose: 1 drop Documented by: - Exam General: Reports: Alert, Cooperative HEENT: Reports: Pupils Equal, Pupils Reactive, EOMI Neck: Reports: Supple Lungs: Reports: Clear to Auscultation, Normal Respiratory Effort Cardiovascular: Reports: Regular Rate, Regular Rhythm GI/Abdominal Exam: Normal Bowel Sounds Extremities: Normal Inspection Psy/Mental Status: Reports: Alert
== END 2021-02-08 15:35 | disposition home or self-care (01) | DRG 57 ==
LOC: LB.MS 11:20
PROVIDERS: ADMIT Surgery; ATTEND Family Medicine
DX: I69.151 Hemiplegia and hemiparesis following nontraumatic intracerebral hemorrhage affecting right dominant side (principal); I10 Essential (primary) hypertension; R13.12 Dysphagia, oropharyngeal phase; E11.9 Type 2 diabetes mellitus without complications; H40.9 Unspecified glaucoma; E66.9 Obesity, unspecified; Z79.4 Long term (current) use of insulin; Z87.440 Personal history of urinary (tract) infections; Z88.0 Allergy status to penicillin; I69.128 Other speech and language deficits following nontraumatic intracerebral hemorrhage; Z20.822 Contact with and (suspected) exposure to COVID-19; Z68.32 Body mass index [BMI] 32.0-32.9, adult
CPT/HCPCS: 36415; 51702; 80048; 81001; 81003; 82947; 85027; 87086; 92523-GN; 92526-GN; 92610-GN; 97110-GO; 97110-GP; 97162-GP; 97167-GO; 97530-GO; 97530-GP; 97535-GO; 99305; A9270-GY; J1815-GY; U0002

== ENCOUNTER 2021-02-22 01:09 | Emergency (ER) | payer MEDICARE ==
[2021-02-22] MEDS ORDERED: Ondansetron 4 MG/2 ML SDV IVPUSH ONE (01:34)
[2021-02-22] MEDS ORDERED: Sodium Chloride 0.9% 1,000 ML IV ONE (01:35)
[2021-02-22] MEDS ORDERED: Diltiazem 100 MG in Sodium Chloride 0.9% 100 ML IV SCH (02:45)
[2021-02-22] MEDS ORDERED: Ondansetron 4 MG/2 ML SDV ONE (02:54)
[2021-02-22] MEDS: Diltiazem 50 MG/10 ML SDV IVPUSH ONE ×2 (03:00→03:15)
[2021-02-22] MEDS ORDERED: Labetalol 100 MG in Sodium Chloride 0.9% 80 ML IV SCH (03:30)
[2021-02-22] MEDS ORDERED: Labetalol 100 MG/20 ML MDV ONE (03:34)
[2021-02-22] MEDS: Labetalol 100 MG/20 ML MDV IVPUSH STA ×3 (03:40→04:45)
--- NOTE | 2021-02-22 04:50 | EDM.PDOC ---
ED HPI GENERAL MEDICAL PROBLEM - General Chief Complaint: Gastrointestinal Problem Stated Complaint: VOMITING Time Seen by Provider: 02/22/21 01:45 Source of Information: Reports: Family - History of Present Illness INITIAL COMMENTS - FREE TEXT/NARRATIVE: Pt comes to the ER with her son. She started vomiting last evening after eating. She has vomited 8-9 times. No coughing, SOB, wheezing, or diarrhea. He states she has been having BM's on a regular basis. 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 She is only able to speak using 1 or 2 words at a time, and hard to understand. - Related Data Allergies Allergy/AdvReac Type Severity Reaction Status Date / Time penicillin G Allergy Rash Verified 02/22/21 02:58 Home Meds: Home Meds Brimonidine [Alphagan 0.2% Ophth Soln] 1 drop EYEBOTH BID 01/02/21 [History] Latanoprost/Pf [Latanoprost 0.005% Eye Drop] 1 drop EYEBOTH BEDTIME 01/02/21 [History] Timolol Maleate/PF [Timolol Maleate 0.5% Eye Drop] 1 drop EYEBOTH BID 01/02/21 [History] Ascorbic Acid [Vitamin C] 500 mg PO TID #500 ml 02/07/21 [Rx] Brimonidine [Alphagan P 0.15% Ophth Soln] 1 drop OP BID #15 ml 02/07/21 [Rx] Insulin Glarg,Human.Rec.Analog [Lantus Solostar] 15 unit SUBCUT DAILY 30 Days pen 02/07/21 [Rx] Isosorbide Mononitrate [Imdur] 60 mg PO DAILY #30 tab.er 02/07/21 [Rx] Latanoprost [Xalatan] 1 ml .XX DAILY #30 ml 02/07/21 [Rx] Melatonin 6 mg PO DAILY 30 Days #60 capsule 02/07/21 [Rx] Timolol Maleate/PF [Timolol Maleate 0.5% Eye Drop] 1 each OP BID #60 droperette 02/07/21 [Rx] carvediloL [Carvedilol] 6.25 mg PO BID #60 tablet 02/07/21 [Rx] glucagon HCL [Glucagon Emergency Kit] 1 mg IJ ASDIRECTED #1 ml 02/07/21 [Rx] hydroCHLOROthiazide [Hydrochlorothiazide] 12.5 mg PO DAILY #30 cap 02/07/21 [Rx] lisinopriL [Lisinopril] 20 mg PO DAILY #30 tablet 02/07/21 [Rx] polyethylene glycoL 3350 [MiraLAX] 17 gm PO DAILY #30 packet 02/07/21 [Rx] Ascorbic Acid [Vitamin C] 500 mg PO TID tablet 02/08/21 [Rx] Brimonidine [Alphagan 0.2% Ophth Soln] 1 ml EYEBOTH BID bottle 02/08/21 [Rx] Insulin Glarg,Human.Rec.Analog [Lantus Solostar] 15 units SUBCUT QAM pen 02/08/21 [Rx] Insulin Regular, Human [HumuLIN R] 0 unit SUBCUT QID vial 02/08/21 [Rx] Isosorbide Mononitrate [Imdur] 60 mg PO DAILY tab.er 02/08/21 [Rx] Latanoprost [Xalatan 0.005% Ophth Soln] 1 ml EYEBOTH BEDTIME bottle 02/08/21 [R x] Melatonin 6 mg PO BEDTIME PRN tablet 02/08/21 [Rx] NIFEdipine [Nifedipine ER] 30 mg PO DAILY #90 tab.er.24 02/08/21 [Rx] Non-Formulary Medication [NF Drug] 1 each EYEBOTH BID each 02/08/21 [Rx] carvediloL [Coreg] 6.25 mg PO BID tablet 02/08/21 [Rx] hydroCHLOROthiazide [Hydrochlorothiazide] 12.5 mg PO DAILY cap 02/08/21 [Rx] lisinopriL [Prinivil] 20 mg PO DAILY tablet 02/08/21 [Rx] polyethylene glycoL 3350 [MiraLAX] 17 gm PO DAILY packet 02/08/21 [Rx] timoloL maleate [Timoptic 0.5% Ophth Soln] 1 ml EYEBOTH BID bottle 02/08/21 [Rx] Past Medical History HEENT History: Reports: Cataract Cardiovascular History: Reports: Hypertension [employer]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 GI/Abdominal: Reports: Vomiting ED EXAM, GI/ABD - Physical Exam Exam: See Below Exam Limited By: Physical Impairment (Flaccid on the Rt side.) Cardiovascular: Other (No obvious tenderness with light palpation. Bowel sounds are quiet.) Course - Vital Signs Last Recorded V/S: Last Vital Signs Temp 97.9 F 02/22/21 01:25 Pulse 101 H 02/22/21 01:25 Resp 20 02/22/21 01:25 BP 199/117 H 02/22/21 01:25 Pulse Ox 98 02/22/21 01:25 - Orders/Labs/Meds Labs: Laboratory Tests 02/22/21 02/22/21 02/22/21 Range/Units 01:45 01:45 02:12 WBC 9.2 (4.0-11.0) K/uL RBC 5.44 (3.80-5.80) M/uL Hgb 14.3 (11.5-16.5) g/dL Hct 41.8 (37.0-47.0) % MCV 77 (76-96) fL MCH 26.3 L (27.0-32.0) pg MCHC 34.2 (31.0-35.0) g/dL RDW 14.6 (11.0-16.0) % Plt Count 287 D (150-500) K/uL MPV 9.2 (6.0-10.0) fL Neut % (Auto) 80.6 H (45.0-70.0) % Lymph % (Auto) 16.6 L (20.0-40.0) % Foard % (Auto) 2.4 L (3.0-10.0) % Eos % (Auto) 0.2 L (1.0-5.0) % Baso % (Auto) 0.2 (0.0-0.5) % Neut # (Auto) 7.39 (2.00-7.50) K/uL Lymph # (Auto) 1.52 (1.50-4.00) K/uL Foard # (Auto) 0.22 (0.20-0.80) K/uL Eos # (Auto) 0.02 L (0.04-0.40) K/uL Baso # (Auto) 0.02 (0.02-0.10) K/uL Sodium 133 L (136-145) mmol/L Potassium 4.7 (3.5-5.1) mmol/L Chloride 95 L (98-107) mmol/L Carbon Dioxide 28.9 (21.0-32.0) mmol/L Anion Gap 13.8 (5.0-15.0) mmol/L BUN 45 H (8-26) mg/dL Creatinine 1.93 H D (0.55-1.02) mg/dL Est Cr Clr Drug Dosing TNP Estimated GFR (MDRD) 31 L (>60) MLS/MIN BUN/Creatinine Ratio 23.3 (6-25) Glucose 252 H (74-100) mg/dL Calcium 10.7 H (8.5-10.1) mg/dL Total Bilirubin 0.3 (0.0-1.0) mg/dL AST 21 (15-37) U/L ALT 30 (12-78) U/L Alkaline Phosphatase 85 (46-116) U/L Total Protein 9.5 H (6.4-8.2) g/dL Albumin 3.5 (3.4-5.0) g/dL Globulin 6.0 H (2.2-4.2) g/dL Albumin/Globulin Ratio 0.6 L (0.8-2.0) Lipase 156 (73-393) U/L SARS-CoV-2 RNA (FAYE) Negative (NEGATIVE) Meds: Medications Discontinued Medications Generic Name Dose Route Start Last Admin Trade Name Sulma PRN Reason Stop Dose Admin Diltiazem HCl 2.5 mg 02/22/21 03:00 02/22/21 03:15 Diltiazem 50 Mg/10 Ml Sdv IVPUSH 02/22/21 03:01 2.5 mg ONETIME ONE Administration Sodium Chloride 1,000 mls @ 500 mls/hr 02/22/21 01:35 02/22/21 02:49 Normal Saline IV 02/22/21 03:34 500 mls/hr .BOLUS ONE Administration Diltiazem HCl 100 mg/ Sodium 100 mls @ 5 mls/hr 02/22/21 02:45 Chloride IV TITRATE BRIDGER Protocol 5 MG/HR Labetalol HCl 100 mg/ Sodium 100 mls @ 30 mls/hr 02/22/21 03:30 Chloride IV TITRATE BRIDGER Protocol 0.5 MG/MIN Labetalol HCl Confirm 02/22/21 03:34 02/22/21 04:52 Labetalol 100 Mg/20 Ml Mdv Administered 02/22/21 03:35 Not Given Dose 100 mg .ROUTE .STK-MED ONE Labetalol HCl 5 mg 02/22/21 03:30 02/22/21 04:45 Labetalol 100 Mg/20 Ml Mdv IVPUSH 02/22/21 03:31 5 mg NOW STA Administration Protocol Ondansetron HCl 4 mg 02/22/21 01:34 02/22/21 02:48 Ondansetron 4 Mg/2 Ml Sdv IVPUSH 02/22/21 01:35 4 mg ONETIME ONE Administration Ondansetron HCl Confirm 02/22/21 02:54 02/22/21 02:48 Ondansetron 4 Mg/2 Ml Sdv Administered 02/22/21 02:55 Not Given Dose 4 mg .ROUTE .STK-MED ONE - Re-Assessments/Exams Free Text/Narrative Re-Assessment/Exam: 02/22/21 04:[address] called with the CT report, showing a possible closed loop SBO. Surgical consult recommended. After being turned down by [facility] [place], [place], and [place] I was able to consult with Dr Piper from [facility] in [place] who accepted the pt. Arrangements are being made for a transfer by air. NG tube is being placed by nursing. Normal saline also started. Zofran was given Subl then IV. Pt did vomit at least 3 more times before the NG tube was placed. Departure - Departure Time of Disposition: 06:10 Disposition: DC/Tfer to Acute Hospital 02 Condition: Fair Clinical Impression: Small bowel obstruction - Discharge Information *PRESCRIPTION DRUG MONITORING PROGRAM REVIEWED*: Yes *COPY OF PRESCRIPTION DRUG MONITORING REPORT IN PATIENT RONALD: Yes Referrals: PCP,None [Primary Care Provider] - Forms: ED Department Discharge Additional Instructions: Pt needs an Emergent surgical consult. She is being transferred to [facility] - Dr Donaldson. Sepsis Event Note (ED) - Evaluation Sepsis Screening Result: No Definite Risk - Focused Exam Vital Signs: Vital Signs Temp Pulse Resp BP Pulse Ox 09/17/21 01:25 97.9 F 101 H 20 199/117 H 98
--- NOTE | 2021-02-22 09:03 | CT ---
DATE OF SERVICE: 02/22/21 CLINICAL DATA: Abd pain - nausea and vomiting. UNENHANCED ABDOMEN AND PELVIC CT: Multislice acquisition through the abdomen and pelvis without IV or oral contrast was performed. No priors. There is beam-hardening and streak artifact produced by the patient's arms. Motion artifact also degrades study quality. There are minimal atelectatic changes in the left lung base. The lung bases are otherwise clear. No pleural effusion. The unenhanced liver appears normal. No focal hepatic lesions. The gallbladder appears normal. No calcified gallstones. There is a small hiatal hernia. The spleen appears normal. The pancreas appears normal. The right and left adrenals appear normal. The right and left kidneys appear normal. No nephrocalcinosis or nephrolithiasis. No hydronephrosis or hydroureter. There is a Banuelos catheter within the bladder. It is decompressed. 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 The stomach is gas and fluid-filled and moderately distended. There are gas and fluid-filled distended loops of small bowel throughout the abdomen and pelvis with air-fluid levels. The duodenum is not distended. There is also a transition in the distal ileum. The possibility of closed loop obstruction or a small bowel volvulus should be considered. No pneumatosis. No evidence of appendicitis. There is diverticulosis throughout the colon. No evidence of diverticulitis. There is a large amount of stool noted within the rectum. No free air. There is a small amount of free fluid noted within the pelvis. No adenopathy. No aortic aneurysm. IMPRESSION: Abnormal exam. See above. Surgical consultation is recommended. The patient's physician was notified on the findings by telephone and by [facility] preliminary radiology report. [id number] [facility]
== END 2021-02-22 04:48 ==
LOC: LB.ED 01:09
DX: K56.609 Unspecified intestinal obstruction, unspecified as to partial versus complete obstruction (principal); I10 Essential (primary) hypertension; E11.9 Type 2 diabetes mellitus without complications; Z86.73 Personal history of transient ischemic attack (TIA), and cerebral infarction without residual deficits; Z88.0 Allergy status to penicillin; Z79.4 Long term (current) use of insulin; Z79.899 Other long term (current) drug therapy; Z20.822 Contact with and (suspected) exposure to COVID-19
CPT/HCPCS: 36415; 74176; 80053; 83690; 85025; 96374; 96375; 99285; A0425; A0429; J2405; J3490; J7030; U0002